=== PATIENT | female | born 1985 | race Caucasian/White ===

== ENCOUNTER 2017-02-13 08:41 | Emergency (ER) | payer OTHER ==
[~2017-02-13] VITALS: Ht 167.6 cm; Wt 82.7 kg
[2017-02-13] MEDS ORDERED: LIOT5TAB3 PO (09:32)
[2017-02-13] MEDS ORDERED: LEVO112T2 PO (09:32)
[2017-02-13] MEDS ORDERED: LEVO125T PO (09:32)
[2017-02-13] MEDS ORDERED: FAMO10TA31 PO (09:34)
[2017-02-13] MEDS ORDERED: SODIUM CHLORIDE FLUSH 10ML SYR IVF ONE (10:00)
[2017-02-13] MEDS ORDERED: SODIUM CHLORIDE 0.9% 1,000ML IVBOLUS ONE (10:00)
[2017-02-13] MEDS ORDERED: ONDANSETRON 2MG/ML, 2ML IVPush ONE (10:00)
[2017-02-13] MEDS ORDERED: ONDANSETRON 2MG/ML, 2ML ONE (10:05)
[2017-02-13 10:10] LABS: BASOPHILS # (AUTO) 0.01 x10^3/uL (0-0.1); BASOPHILS % (AUTO) 0 % (0-1); EOSINOPHILS # (AUTO) 0.12 x10^3/uL (0-0.4); EOSINOPHILS % (AUTO) 1 % (1-7); LYMPHOCYTES # (AUTO) 0.83 x10^3/uL (1-3.4); LYMPHOCYTES % (AUTO) 8 % (22-44); MD NO; MEAN CORPUSCULAR HEMOGLOBIN 31.3 pg (27.0-34.8); MEAN CORPUSCULAR VOLUME 92.2 fL (80-100); MEAN PLATELET VOLUME 7.7 fL (7.4-10.4); MONOCYTES # (AUTO) 0.48 x10^3/uL (0.2-0.8); MONOCYTES % (AUTO) 5 % (2-9); NEUTROPHILS # (AUTO) 8.57 x10^3/uL (1.8-6.8); NEUTROPHILS % (AUTO) 86 % (42-75); PLATELET COUNT 206 x10^3/uL (130-400); RED BLOOD COUNT 3.76 x10^6/uL (3.82-5.3)
[2017-02-13 10:23] LABS: ALBUMIN 2.6 g/dL (3.4-5.0); ANION GAP 7 mmol/L (5-15); CHLORIDE 107 mmol/L (98-107)
[2017-02-13 10:26] LABS: ALANINE AMINOTRANSFERASE 12 U/L (12-78); ALKALINE PHOSPHATASE 79 U/L (45-117); BILIRUBIN,TOTAL 0.6 mg/dL (0.2-1.0); CREATININE 0.59 mg/dL (0.55-1.02); TOTAL PROTEIN 6.5 g/dL (6.4-8.2)
[2017-02-13] MEDS ORDERED: DIPHENHYDRAMINE 50 MG/ML, 1ML IVPush ONE (10:30)
[2017-02-13 10:31] LABS: RAPID INFLUENZA A POSITIVE (Negative); RAPID INFLUENZA B Negative (Negative)
[2017-02-13 10:37] LABS: CULTURE INDICATED? YES; MICROSCOPIC INDICATED
[2017-02-13] MEDS ORDERED: DIPHENHYDRAMINE 50 MG/ML, 1ML ONE (10:56)
[2017-02-13] MEDS ORDERED: POTASSIUM CHLORIDE 20 MEQ TAB.ER.PRT ONE (10:57)
[2017-02-13] MEDS ORDERED: OSELTAMIVIR 75 MG CAPSULE PO ONE (11:00)
[2017-02-13] MEDS ORDERED: POTASSIUM CHLORIDE 20 MEQ TAB.ER.PRT PO ONE (11:00)
[2017-02-13 12:01] VITALS: BP 122/70
== END 2017-02-13 12:03 | disposition home or self-care (01) ==
LOC: ED 11:52
DX: O23.13 Infections of bladder in pregnancy, third trimester (principal); O99.713 Diseases of the skin and subcutaneous tissue complicating pregnancy, third trimester; J09.X2 Influenza due to identified novel influenza A virus with other respiratory manifestations; Z3A.31 31 weeks gestation of pregnancy
CPT/HCPCS: 36415; 80053; 81001; 83605; 85025; 87086; 87400; 96361; 96374; 96375; 99285; J1200; J2405; J7030

== ENCOUNTER 2017-04-16 12:23 | Outpatient (CLI) | payer OTHER ==
[~2017-04-16 12:23] MED LIST: FAMO10TA31 PO; LEVO112T2 PO; LEVO125T PO; LIOT5TAB3 PO
[2017-04-16 12:57] LABS: MICROSCOPIC NOT IND
[2017-04-16 12:59] LABS: CULTURE INDICATED? NO
== END 2017-04-16 15:00 | disposition home or self-care (01) ==
LOC: LDOP 12:23
PROVIDERS: ATTEND Obstetrics & Gynecology
DX: O26.893 Other specified pregnancy related conditions, third trimester (principal); R10.9 Unspecified abdominal pain; Z3A.39 39 weeks gestation of pregnancy
CPT/HCPCS: 59025; 81003; 99201; G0463

== ENCOUNTER 2017-04-17 02:38 | Inpatient (IN) | payer OTHER ==
[~2017-04-17] VITALS: Ht 167.6 cm; Wt 86.4 kg
[2017-04-17] MEDS ORDERED: FENTANYL PF 100 MCG/2ML ONE (02:56)
[2017-04-17] MEDS ORDERED: OXYTOCIN 30U/ 0.9% NaCL 500ML 500 ML IV ONE (02:57)
[2017-04-17] MEDS ORDERED: LACTATED RINGERS 1,000 ML IVBOLUS PRN ×2 (03:00→04:30)
[2017-04-17] MEDS ORDERED: ONDANSETRON 2MG/ML, 2ML IVPush PRN (03:00)
[2017-04-17] MEDS ORDERED: FENTANYL PF 100 MCG/2ML IV PRN (03:00)
[2017-04-17] MEDS ORDERED: CALCIUM CARBONATE 500 MG TAB.CHEW PO PRN (03:00)
[2017-04-17] MEDS ORDERED: FENTANYL PF 100 MCG/2ML IVPush PRN (03:00)
[2017-04-17] MEDS ORDERED: MISOPROSTOL 200 MCG TABLET ONE (03:04)
[2017-04-17] MEDS ORDERED: OXYTOCIN 30U/ 0.9% NaCL 500ML 500 ML ONE (03:04)
[2017-04-17] MEDS ORDERED: LIDOCAINE 1%, 20ML ONE (03:04)
[2017-04-17] MEDS ORDERED: NEWBORN KIT ONE (03:04)
[2017-04-17 03:21] LABS: BASOPHILS # (AUTO) 0.04 x10^3/uL (0-0.1); BASOPHILS % (AUTO) 0 % (0-1); EOSINOPHILS # (AUTO) 0.01 x10^3/uL (0-0.4); EOSINOPHILS % (AUTO) 0 % (1-7); LYMPHOCYTES # (AUTO) 1.22 x10^3/uL (1-3.4); LYMPHOCYTES % (AUTO) 7 % (22-44); MD NO; MEAN CORPUSCULAR HEMOGLOBIN 28.3 pg (27.0-34.8); MEAN CORPUSCULAR HGB CONC 33.1 g/dL (32.4-35.8); MEAN CORPUSCULAR VOLUME 85.4 fL (80-100); MEAN PLATELET VOLUME 9.2 fL (7.4-10.4); MONOCYTES # (AUTO) 0.63 x10^3/uL (0.2-0.8); MONOCYTES % (AUTO) 4 % (2-9); NEUTROPHILS # (AUTO) 14.99 x10^3/uL (1.8-6.8); NEUTROPHILS % (AUTO) 89 % (42-75); PLATELET COUNT 231 x10^3/uL (130-400); RED BLOOD COUNT 3.83 x10^6/uL (3.82-5.3); RED CELL DISTRIBUTION WIDTH 14.4 % (9.6-15.2)
[2017-04-17] MEDS: LACTATED RINGERS 1,000 ML IV SCH ×6 (03:22→20:09)
[2017-04-17] MEDS ORDERED: LIDOCAINE-MPF 2% ,5ML ONE (03:33)
[2017-04-17] MEDS ORDERED: FENTANYL/BUPIV./NS/PF 250 ML EPIDCONT ONE ×2 (03:33→18:19)
[2017-04-17 03:34] LABS: ALANINE AMINOTRANSFERASE 12 U/L (12-78); ALBUMIN 2.6 g/dL (3.4-5.0); ANION GAP 13 mmol/L (5-15); BILIRUBIN, DIRECT 0.2 mg/dL (0.1-0.2); CALCIUM 9.3 mg/dL (8.5-10.1); CHLORIDE 101 mmol/L (98-107); CREATININE 0.78 mg/dL (0.55-1.02)
[2017-04-17 03:36] LABS: ALKALINE PHOSPHATASE 152 U/L (45-117); BILIRUBIN,TOTAL 1.1 mg/dL (0.2-1.0); TOTAL PROTEIN 6.7 g/dL (6.4-8.2)
[2017-04-17] MEDS: FENTANYL/BUPIV./NS/PF 250 ML EPIDCONT SCH (04:09)
[2017-04-17] MEDS ORDERED: EPHEDRINE 50 MG/ML, 1ML IVPush PRN (04:30)
[2017-04-17] MEDS ORDERED: NALOXONE 0.4 MG/ML, 1ML IVPush PRN (04:30)
[2017-04-17] MEDS: D5%-LACTATED RINGERS 1,000 ML IV SCH ×3 (08:56→18:57)
[2017-04-17] MEDS ORDERED: OXYTOCIN 30U/ 0.9% NaCL 500ML 500 ML IV PRN (10:01)
[2017-04-17] MEDS ORDERED: ONDANSETRON 2MG/ML, 2ML ONE (10:42)
[2017-04-17 11:55] LABS: MICROSCOPIC INDICATED
[2017-04-17] MEDS ORDERED: SODIUM CITRATE/CITRIC ACID 30 ML UDC ONE (20:29)
[2017-04-18] MEDS ORDERED: MEPERIDINE/PF 25MG/0.5ML IVPush PRN
[2017-04-18] MEDS ORDERED: PROMETHAZINE 25 MG/ML, 1ML IV PRN
[2017-04-18] MEDS ORDERED: hydrALAzine 20 MG/ML, 1ML IV PRN
[2017-04-18] MEDS ORDERED: ONDANSETRON 2MG/ML, 2ML IVPush PRN
[2017-04-18] MEDS ORDERED: HYDROcodone/APAP 7.5-325MG/15ML UDC PO PRN
[2017-04-18] MEDS ORDERED: ALBUTEROL SULFATE 2.5 MG/3 ML NPPB PRN
[2017-04-18] MEDS ORDERED: HYDROmorphone 1 MG/ML, 1ML IV PRN
[2017-04-18] MEDS ORDERED: OXYcodone 5 MG/5 ML ORAL.SOL UDC PO PRN
[2017-04-18] MEDS ORDERED: LABETALOL 5MG/ML, 20ML IV PRN
[2017-04-18] MEDS ORDERED: MIDAZOLAM 1 MG/ML, 2ML IV PRN
[2017-04-18] MEDS ORDERED: FENTANYL PF 100 MCG/2ML IV PRN
[2017-04-18] MEDS ORDERED: EPHEDRINE 50 MG/ML, 1ML IVPush PRN
[2017-04-18] MEDS ORDERED: LACTATED RINGERS 1,000 ML IV SCH (00:08)
[2017-04-18] MEDS ORDERED: OXYTOCIN 30U/ 0.9% NaCL 500ML 500 ML IV SCH (00:08)
[2017-04-18] MEDS ORDERED: SUCCINYLCHOLINE 20 MG/ML, 10ML ONE (00:15)
[2017-04-18] MEDS ORDERED: CEFAZOLIN 1,000 MG ONE (00:15)
[2017-04-18] MEDS ORDERED: ONDANSETRON 2MG/ML, 2ML ONE (00:15)
[2017-04-18] MEDS ORDERED: KETOROLAC 30 MG/1 ML ONE (00:15)
[2017-04-18] MEDS ORDERED: DEXAMETHASONE 4 MG/ML, 1ML ONE (00:15)
[2017-04-18] MEDS ORDERED: PROPOFOL 10 MG/ML, 20ML ONE (00:15)
[2017-04-18] MEDS ORDERED: METOCLOPRAMIDE 5 MG/ML, 2ML ONE (00:15)
[2017-04-18] MEDS ORDERED: LACTATED RINGERS 1,000 ML IVBOLUS ONE (00:30)
[2017-04-18] MEDS ORDERED: CEFAZOLIN PMX 1GM/50ML 50 ML IVPB ONE (00:30)
[2017-04-18] MEDS ORDERED: METOCLOPRAMIDE 5 MG/ML, 2ML IV ONE (00:30)
[2017-04-18] MEDS ORDERED: SODIUM CITRATE/CITRIC ACID 30 ML UDC PO ONE (00:30)
[2017-04-18] MEDS: FENTANYL/BUPIV./NS/PF 250 ML EPIDCONT SCH (00:59)
[2017-04-18] MEDS: KETOROLAC 30 MG/1 ML IVPush SCH ×4 (01:00→21:15)
[2017-04-18] MEDS: LACTATED RINGERS 1,000 ML IV SCH ×5 (01:38→11:38)
[2017-04-18] MEDS: OXYTOCIN 30U/ 0.9% NaCL 500ML 500 ML IV SCH ×2 (01:38→11:38)
[2017-04-18] MEDS ORDERED: METOCLOPRAMIDE 5 MG/ML, 2ML IV PRN (02:00)
[2017-04-18] MEDS ORDERED: MISOPROSTOL 200 MCG TABLET PR PRN (02:00)
[2017-04-18] MEDS ORDERED: IBUPROFEN 600 MG TABLET PO PRN (02:00)
[2017-04-18] MEDS ORDERED: KETOROLAC 30 MG/1 ML IV SCH (02:00)
[2017-04-18] MEDS ORDERED: METHYLERGONOVINE 0.2 MG/ML IM PRN (02:00)
[2017-04-18] MEDS ORDERED: morphine SULFATE 10 MG/ML, 1ML IVPush PRN (02:00)
[2017-04-18] MEDS ORDERED: ONDANSETRON 2MG/ML, 2ML IV PRN (02:00)
[2017-04-18] MEDS ORDERED: GLYCERIN ADULT SUPP PR PRN (02:00)
[2017-04-18] MEDS ORDERED: OXYcodone/APAP 5/325MG TABLET PO PRN (02:00)
[2017-04-18] MEDS ORDERED: BISACODYL 10 MG SUPP PR PRN (02:00)
[2017-04-18] MEDS ORDERED: CARBOPROST TROMETHAMINE 250 MCG/ML, 1ML IM PRN (02:00)
[2017-04-18] MEDS: KETOROLAC 30 MG/1 ML IM SCH ×5 (02:00→21:41)
[2017-04-18] MEDS ORDERED: ACETAMINOPHEN 325 MG TABLET PO PRN (02:00)
[2017-04-18] MEDS ORDERED: SIMETHICONE 80 MG CHEW TAB PO PRN (02:00)
[2017-04-18] MEDS: D5%-LACTATED RINGERS 1,000 ML IV SCH (02:57)
[2017-04-18 03:30] VITALS: BP 153/91
[2017-04-18 08:50] VITALS: BP 154/92
[2017-04-18] MEDS: PRENATAL VIT/IRON/FA 1 EACH TABLET PO SCH (08:59)
[2017-04-18] MEDS: DOCUSATE 100 MG CAPSULE PO PRN (08:59)
[2017-04-18] MEDS: OXYcodone/APAP 5/325MG TABLET PO PRN ×2 (09:54→15:32)
[2017-04-18 10:16] LABS: BASOPHILS # (AUTO) 0.01 x10^3/uL (0-0.1); BASOPHILS % (AUTO) 0 % (0-1); EOSINOPHILS % (AUTO) 0 % (1-7); LYMPHOCYTES # (AUTO) 1.04 x10^3/uL (1-3.4); LYMPHOCYTES % (AUTO) 6 % (22-44); MD NO; MEAN CORPUSCULAR HEMOGLOBIN 28.4 pg (27.0-34.8); MEAN CORPUSCULAR HGB CONC 33.3 g/dL (32.4-35.8); MEAN CORPUSCULAR VOLUME 85.3 fL (80-100); MEAN PLATELET VOLUME 9.2 fL (7.4-10.4); MONOCYTES # (AUTO) 0.61 x10^3/uL (0.2-0.8); MONOCYTES % (AUTO) 4 % (2-9); NEUTROPHILS % (AUTO) 91 % (42-75); PLATELET COUNT 195 x10^3/uL (130-400); RED BLOOD COUNT 3.42 x10^6/uL (3.82-5.3); RED CELL DISTRIBUTION WIDTH 14.4 % (9.6-15.2)
[2017-04-18 11:35] VITALS: BP 138/88
[2017-04-18 19:40] VITALS: BP 132/84
[2017-04-18 23:56] VITALS: BP 123/72
[2017-04-19] MEDS: KETOROLAC 30 MG/1 ML IVPush SCH (05:05)
[2017-04-19] MEDS: KETOROLAC 30 MG/1 ML IM SCH (05:41)
[2017-04-19] MEDS ORDERED: LEVOTHYROXINE 100 MCG TABLET PO SCH (06:00)
[2017-04-19 08:00] VITALS: BP 139/87
[2017-04-19] MEDS: PRENATAL VIT/IRON/FA 1 EACH TABLET PO SCH (08:25)
[2017-04-19] MEDS: DOCUSATE 100 MG CAPSULE PO PRN ×2 (08:25→22:12)
[2017-04-19] MEDS: IBUPROFEN 800 MG TABLET PO PRN ×2 (11:42→22:13)
[2017-04-19 20:02] VITALS: BP 135/83
[2017-04-20] MEDS: IBUPROFEN 800 MG TABLET PO PRN (05:56)
[2017-04-20] MEDS ORDERED: LEVOTHYROXINE 112 MCG TABLET PO SCH (06:00)
[2017-04-20] MEDS ORDERED: LIOTHYRONINE 5 MCG TABLET PO SCH (06:00)
[2017-04-20 08:56] VITALS: BP 126/81
[2017-04-20] MEDS: PRENATAL VIT/IRON/FA 1 EACH TABLET PO SCH ×2 (09:00→14:23)
[2017-04-20] MEDS ORDERED: IBUP-1222 PO (14:13)
[2017-04-20] MEDS: DOCUSATE 100 MG CAPSULE PO PRN (14:23)
== END 2017-04-20 20:01 | disposition home or self-care (01) | DRG 766 ==
LOC: LDOP 02:38 → LDIP 02:57 → 2NW 04-18 03:22
PROVIDERS: ADMIT Obstetrics & Gynecology; ATTEND Obstetrics & Gynecology
PROC: 10D00Z1 Extraction of Products of Conception, Low, Open Approach (ICD-10-PCS; principal; 2017-04-17)
PROC: 10907ZC Drainage of Amniotic Fluid, Therapeutic from Products of Conception, Via Natural or Artificial Opening (ICD-10-PCS; 2017-04-17)
DX: O76 Abnormality in fetal heart rate and rhythm complicating labor and delivery (principal); E03.9 Hypothyroidism, unspecified; O99.284 Endocrine, nutritional and metabolic diseases complicating childbirth; Z3A.40 40 weeks gestation of pregnancy; Z37.0 Single live birth
CPT/HCPCS: 36415; 80053; 81001; 82248; 82803; 84550; 85025; 86850; 86900; J0690; J1100; J1170; J1885; J2405; J2704; J3010; J0330; J2370; J2590; J2765; J7120; J7121

== ENCOUNTER → 2018-01-03 | Outpatient (CLI) | payer OTHER ==
[~2018-01-03] MED LIST changes: +IBUP-1222 PO
== END | disposition home or self-care (01) ==
LOC: CFH 10:22
PROVIDERS: ATTEND Nurse Practitioner Primary Care
DX: E04.1 Nontoxic single thyroid nodule (principal); E06.3 Autoimmune thyroiditis
CPT/HCPCS: 76536

== ENCOUNTER 2020-06-15 15:09 | Inpatient (IN) | payer BC ==
[~2020-06-15] VITALS: Ht 162.6 cm; Wt 88.6 kg
[~2020-06-15 15:09] MED LIST changes: +LIOT5TAB11 PO; -LIOT5TAB3 PO
[2020-06-15] MEDS ORDERED: OXYTOCIN 10 UNITS/ML, 1ML ONE (15:16)
[2020-06-15] MEDS ORDERED: LIDOCAINE 1%, 20ML ONE (15:16)
[2020-06-15] MEDS ORDERED: MISOPROSTOL 200 MCG TABLET ONE (15:16)
[2020-06-15] MEDS ORDERED: OXYTOCIN 30U/ 0.9% NaCL 500ML 500 ML ONE (15:59)
[2020-06-15] MEDS ORDERED: TERBUTALINE 1 MG/ML, 1ML IVPush PRN ×2 (16:00→16:30)
[2020-06-15] MEDS ORDERED: TERBUTALINE 1 MG/ML, 1ML SQ PRN ×2 (16:00→16:30)
[2020-06-15] MEDS ORDERED: OXYTOCIN 30U/ 0.9% NaCL 500ML 500 ML IV ONE (16:00)
[2020-06-15] MEDS ORDERED: NEWBORN KIT ONE (16:00)
[2020-06-15] MEDS ORDERED: FENTANYL PF 100 MCG/2ML ONE (16:15)
[2020-06-15] MEDS ORDERED: DOCUSATE 100 MG CAPSULE PO PRN (16:30)
[2020-06-15] MEDS ORDERED: PLEASE ENTER HEIGHT AND WEIGHT MC SCH (16:30)
[2020-06-15] MEDS ORDERED: OXYTOCIN 10 UNITS/ML, 1ML IM PRN (16:30)
[2020-06-15] MEDS: OXYTOCIN 30U/ 0.9% NaCL 500ML 500 ML IV SCH (16:30)
[2020-06-15] MEDS ORDERED: HYDROcodone/APAP 5/325 TABLET PO PRN ×2 (16:30)
[2020-06-15] MEDS ORDERED: ACETAMINOPHEN 325 MG TABLET PO PRN (16:30)
[2020-06-15] MEDS ORDERED: SIMETHICONE 80 MG CHEW TAB PO PRN (16:30)
[2020-06-15] MEDS ORDERED: MISOPROSTOL 200 MCG TABLET PR PRN (16:30)
[2020-06-15] MEDS ORDERED: ONDANSETRON 2MG/ML, 2ML IV PRN (16:30)
[2020-06-15] MEDS ORDERED: METHYLERGONOVINE 0.2 MG/ML IM PRN (16:30)
[2020-06-15 16:34] LABS: BASOPHILS % (AUTO) 0 % (0-1); EOSINOPHILS % (AUTO) 0 % (1-7); LYMPHOCYTES % (AUTO) 6 % (22-44); MEAN PLATELET VOLUME 8.7 fL (7.4-10.4); MONOCYTES % (AUTO) 3 % (2-9); NEUTROPHILS % (AUTO) 91 % (42-75); PLATELET COUNT 165 x10^3/uL (130-400); RED BLOOD COUNT 3.89 x10^6/uL (3.82-5.3); RED CELL DISTRIBUTION WIDTH 13.8 % (9.6-15.2)
[2020-06-15 16:55] LABS: MD SCAN
[2020-06-15] MEDS ORDERED: FENTANYL PF 100 MCG/2ML IVPush PRN (17:30)
[2020-06-15 18:20] VITALS: BP 126/80
[2020-06-15] MEDS: IBUPROFEN 600 MG TABLET PO PRN (18:47)
[2020-06-15 20:00] VITALS: BP 119/76
[2020-06-16] LABS: BASOPHILS % (AUTO) 0 % (0-1); EOSINOPHILS % (AUTO) 0 % (1-7); LYMPHOCYTES % (AUTO) 10 % (22-44); MEAN CORPUSCULAR HEMOGLOBIN 29.3 pg (27.0-34.8); MEAN CORPUSCULAR HGB CONC 33.4 g/dL (32.4-35.8); MEAN PLATELET VOLUME 8.5 fL (7.4-10.4); MONOCYTES % (AUTO) 6 % (2-9); NEUTROPHILS % (AUTO) 84 % (42-75); PLATELET COUNT 173 x10^3/uL (130-400); RED BLOOD COUNT 3.67 x10^6/uL (3.82-5.3); RED CELL DISTRIBUTION WIDTH 14.2 % (9.6-15.2)
[2020-06-16 00:01] LABS: MD NO
[2020-06-16 00:15] VITALS: BP 111/72
[2020-06-16] MEDS: IBUPROFEN 600 MG TABLET PO PRN ×3 (00:20→12:09)
[2020-06-16] MEDS: OXYTOCIN 30U/ 0.9% NaCL 500ML 500 ML IV SCH (02:30)
[2020-06-16 03:55] VITALS: BP 125/84
[2020-06-16] MEDS ORDERED: LEVOTHYROXINE 100 MCG TABLET PO SCH (06:00)
[2020-06-16 07:45] VITALS: BP 129/72
[2020-06-16] MEDS ORDERED: PRENATAL VIT/IRON/FA 1 EACH TABLET PO SCH (09:00)
[2020-06-16] MEDS ORDERED: IBUP-1223 PO (10:06)
[2020-06-16] MEDS ORDERED: SENN-92 PO (10:07)
[2020-06-16 12:10] VITALS: BP 101/65
== END 2020-06-16 17:30 | disposition home or self-care (01) | DRG 807 ==
LOC: LDOP 15:09 → LDIP 15:15 → LDOP 15:35 → LDIP 15:51 → 2NW 18:24
PROVIDERS: ADMIT Obstetrics & Gynecology; ATTEND Obstetrics & Gynecology
PROC: 10E0XZZ Delivery of Products of Conception, External Approach (ICD-10-PCS; principal; 2020-06-15)
PROC: 0HQ9XZZ Repair Perineum Skin, External Approach (ICD-10-PCS; 2020-06-15)
PROC: 0UQMXZZ Repair Vulva, External Approach (ICD-10-PCS; 2020-06-15)
DX: O76 Abnormality in fetal heart rate and rhythm complicating labor and delivery (principal); Z37.0 Single live birth; E03.9 Hypothyroidism, unspecified; O34.211 Maternal care for low transverse scar from previous cesarean delivery; O99.284 Endocrine, nutritional and metabolic diseases complicating childbirth; Z3A.37 37 weeks gestation of pregnancy; O70.0 First degree perineal laceration during delivery; O71.82 Other specified trauma to perineum and vulva
CPT/HCPCS: 36415; 85025; 86592; 86850; 86900; G0378; J3010; J2590